=== PATIENT | female | born 1965 | race Two or more races ===

== ENCOUNTER → 2017-05-27 | Outpatient (CLI) | payer BC ==
[~2017-05-27] MED LIST: CARI350T PO; NAPR500T4 PO; OXYC-323 PO; ZOLP10TA PO
== END | disposition home or self-care (01) ==
LOC: SURG 14:21
PROVIDERS: ATTEND Anesthesiology
DX: M51.36 Other intervertebral disc degeneration, lumbar region (principal); M47.816 Spondylosis without myelopathy or radiculopathy, lumbar region; M54.16 Radiculopathy, lumbar region; M96.1 Postlaminectomy syndrome, not elsewhere classified; M79.604 Pain in right leg; M10.9 Gout, unspecified; M19.90 Unspecified osteoarthritis, unspecified site; J32.9 Chronic sinusitis, unspecified; Z90.89 Acquired absence of other organs; Z90.710 Acquired absence of both cervix and uterus
CPT/HCPCS: 99204

== ENCOUNTER → 2017-08-01 | Outpatient (CLI) | payer BC ==
--- NOTE | 2017-08-01 12:34 | RAD ---
PA and lateral chest radiographs 08/01/2017 Clinical history: Cough with chest congestion. PA and lateral digital radiographs of the chest were obtained. Previous studies are available for comparison. The cardiac silhouette is normal in size. The thoracic aorta is mildly tortuous. No acute pulmonary infiltrate is seen. No pleural effusion or pneumothorax is noted. The osseous structures are grossly intact. Impression: No acute abnormality is seen.
== END | disposition home or self-care (01) ==
LOC: PMG 10:03
PROVIDERS: ATTEND Physician Assistant Medical
DX: R09.89 Other specified symptoms and signs involving the circulatory and respiratory systems (principal)
CPT/HCPCS: 71046

== ENCOUNTER → 2021-12-10 | Outpatient (CLI) | payer OTHER ==
[~2021-12-10] MED LIST changes: +NAPR-514 PO; -NAPR500T4 PO; -OXYC-323 PO; +OXYC1TAB15 PO
--- NOTE | 2021-12-11 09:30 | RAD ---
XR LUMBAR SPINE 2-3V History: Reason: DISABILITY DETERMINATION / Spl. Instructions: / History: Technique: 3 views lumbar spine. Comparison: None. Findings: Straightening of the lumbar spine. Normal vertebral body height. No acute fracture. Mild degenerative disc changes most prominent L5-S1. Facet arthropathy. Impression: 1. Mild lumbar spondylosis. Electronically signed by: Ryan Orozco DO (12/11/2021 9:28 AM) [id number]
--- NOTE | 2021-12-11 09:31 | RAD ---
XR KNEE_RT 1-2 VIEWS History: Reason: DISABILITY DETERMINATION / Spl. Instructions: / History: Technique: 2 views right knee. Comparison: None. Findings: No dislocation. No acute fracture. No significant knee joint effusion. Mild patellar spurring. Impression: 1. No acute osseous abnormality. Electronically signed by: Ryan Orozco DO (12/11/2021 9:29 AM) [id number]
== END ==
LOC: RAD 11:46
PROVIDERS: ATTEND Family Medicine
DX: Z02.71 Encounter for disability determination (principal); M47.816 Spondylosis without myelopathy or radiculopathy, lumbar region; M51.37 Other intervertebral disc degeneration, lumbosacral region; M76.891 Other specified enthesopathies of right lower limb, excluding foot
CPT/HCPCS: 72100; 73560